=== PATIENT | male | born 1965 | race Caucasian/White ===

== ENCOUNTER 2018-11-20 19:46 | Emergency (ER) | payer MEDICAID ==
[~2018-11-20] VITALS: Ht 182.9 cm; Wt 81.8 kg
[2018-11-20] MEDS ORDERED: AMOX-580 PO (21:00)
[2018-11-20] MEDS ORDERED: amox tr/potassium clavulanate 875/125mg TAB PO ONE (21:05)
[2018-11-20 21:14] VITALS: BP 117/87
== END 2018-11-20 21:16 | disposition home or self-care (01) ==
LOC: ER 19:49
DX: J32.9 Chronic sinusitis, unspecified (principal); Z79.899 Other long term (current) drug therapy
CPT/HCPCS: 99283

== ENCOUNTER 2023-02-12 20:04 | Emergency (ER) | payer MEDICAID ==
[~2023-02-12] VITALS: Ht 182.9 cm; Wt 81.8 kg
[2023-02-12 20:19] VITALS: BP 188/79; PULSE 67; RESP 18; O2SAT 97
[2023-02-12] MEDS ORDERED: LIDOcaine 1% W/epiNEPHrine 1:100,000 20ml vial SQ ONE (23:55)
[2023-02-13] MEDS ORDERED: clindamycin phosphate 150mg/ml inj. IM ONE (00:30)
[2023-02-13] MEDS ORDERED: HYDROcodone/acetaminophen 10/325mg tab PO ONE (00:30)
[2023-02-13] MEDS ORDERED: HYDR-3973 PO (00:36)
[2023-02-13] MEDS ORDERED: CLIN300C19 PO (00:36)
[2023-02-13] MEDS ORDERED: clindamycin 150mg capsule PO ONE (00:45)
[2023-02-13 01:04] VITALS: TEMP 98.8
== END 2023-02-13 01:06 | disposition home or self-care (01) ==
LOC: ER 20:04
DX: L02.31 Cutaneous abscess of buttock (principal); Z79.2 Long term (current) use of antibiotics; Z79.899 Other long term (current) drug therapy
CPT/HCPCS: 10060; 99283; A6449